=== PATIENT | male | born 1980 | race Caucasian/White ===

== ENCOUNTER 2022-09-05 10:18 | Emergency (ER) | payer BC ==
[2022-09-05] MEDS ORDERED: SODIUM CHLORIDE 0.9% 500 ML INFUS.BAG IV ONE (10:45)
[2022-09-05] MEDS ORDERED: ACETAMINOPHEN 1000 MG/100 ML BAG IVPB ONE (10:45)
[2022-09-05] MEDS ORDERED: ACETAMINOPHEN INJECTION 100 ML IVPB ONE (10:52)
[2022-09-05 11:06] VITALS: RESP 16; BMI 28.2
[2022-09-05 11:28] LABS: INR 1.03 (0.83-1.09)
[2022-09-05 11:30] LABS: ACTIVATED PTT 33.6 SECONDS (25.2-36.5)
[2022-09-05 11:33] LABS: HEMATOCRIT 46.4 % (35.4-49); HEMOGLOBIN 15.8 G/dL (11.7-16.9); MCH 31.4 pg (25.7-33.7); MCHC 34.1 g/dl (32.0-35.9); MEAN PLT VOLUME 8.6 fl (7.5-11.1); PLATELET COUNT 201.7 10^3/uL (134-434); RBC 5.04 10^6/uL (4.00-5.60); RDW 13.5 % (11.9-15.9); WHITE BLOOD COUNT 4.9 10^3/uL (4.0-10.8)
[2022-09-05 11:37] LABS: EPITHELIAL CELLS FEW /hpf
[2022-09-05 11:48] LABS: PLATELET ESTIMATE ADEQUATE
[2022-09-05 11:52] LABS: ALBUMIN 4.6 g/dl (3.4-5.0); BILIRUBIN,TOTAL 0.9 mg/dl (0.2-1); BLOOD UREA NITROGEN 20.1 mg/dl (7-18); CALCIUM 9.3 mg/dl (8.5-10.1); POTASSIUM 4.1 mmol/L (3.5-5.1); SGPT/ALT 25.2 U/L (7-52); TOT PROT 6.9 g/dl (6.4-8.2)
[2022-09-05 14:25] VITALS: BP 126/80; PULSE 68; TEMP 98.2
== END 2022-09-05 13:53 | disposition home or self-care (01) ==
LOC: FER 10:18
PROC: 3E033NZ Introduction of Analgesics, Hypnotics, Sedatives into Peripheral Vein, Percutaneous Approach (ICD-10-PCS; principal; 2022-09-05)
DX: R10.31 Right lower quadrant pain (principal); R19.7 Diarrhea, unspecified; K57.90 Diverticulosis of intestine, part unspecified, without perforation or abscess without bleeding
CPT/HCPCS: 36415; 74177-TC; 80053; 81003; 81015; 85027; 85610; 85730; 86850; 86900; 86901; 87086; 99285-25; Q9967

== ENCOUNTER 2023-08-01 09:19 | Emergency (ER) | payer BC ==
[2023-08-01 09:29] VITALS: BP 143/93; PULSE 74; RESP 16; TEMP 98.2; BMI 27.4
[2023-08-01] MEDS: SODIUM CHLORIDE 0.9% 1000 ML INFUS.BAG IV ONE (10:00)
[2023-08-01 10:40] LABS: HEMATOCRIT 51.5 % (35.4-49); HEMOGLOBIN 17.7 G/dL (11.7-16.9); MCH 30.9 pg (25.7-33.7); MCHC 34.4 g/dl (32.0-35.9); MEAN CELL VOLUME 89.8 fl (80-96); MEAN PLT VOLUME 8.3 fl (7.5-11.1); PLATELET COUNT 217.3 10^3/uL (134-434); RBC 5.74 10^6/uL (4.00-5.60); RDW 13.6 % (11.9-15.9); WHITE BLOOD COUNT 9.5 10^3/uL (4.0-10.8)
[2023-08-01 10:51] LABS: ALBUMIN 4.9 g/dl (3.4-5.0); ALK PHOS 56 U/L (45-117); ANION GAP 12 mmol/L (4-13); BILIRUBIN,TOTAL 0.7 mg/dl (0.2-1); CALCIUM 9.9 mg/dl (8.5-10.1); CHLORIDE 100 mmol/L (98-107); CO2 22 mmol/L (21-32); CREATININE 1.1 mg/dl (0.6-1.3); GLUCOSE,RANDOM 103 mg/dl (74-106); POTASSIUM 3.5 mmol/L (3.5-5.1); SGOT/AST 13 U/L (15-37); SGPT/ALT 14 U/L (7-52); SODIUM 134 mmol/L (136-145); TOT PROT 7.3 g/dl (6.4-8.2)
[2023-08-01 11:42] LABS: PLATELET ESTIMATE ADEQUATE
== END 2023-08-01 11:45 | disposition home or self-care (01) ==
LOC: FER 09:19
DX: K52.9 Noninfective gastroenteritis and colitis, unspecified (principal)
CPT/HCPCS: 36415; 80053; 83690; 85027; 99283-25